=== PATIENT | female | born 1980 | race Caucasian/White ===

== ENCOUNTER 2023-06-10 11:22 | Day surgery (SDC) | payer BC ==
[2023-06-09 10:37] VITALS: BMI 41.3
[2023-06-10] MEDS ORDERED: PROPOFOL 20 ML ONE ×5 (14:29→14:33)
[2023-06-10] MEDS ORDERED: Midazolam HCl 2 mg/2 ml Vial ONE (14:34)
== END 2023-06-10 15:55 | disposition home or self-care (01) ==
LOC: CSHSDC 11:22
PROVIDERS: ATTEND Surgery
PROC: 0DBM8ZZ Excision of Descending Colon, Via Natural or Artificial Opening Endoscopic (ICD-10-PCS; principal; 2023-06-10)
DX: Z12.11 Encounter for screening for malignant neoplasm of colon (principal); K52.9 Noninfective gastroenteritis and colitis, unspecified; K63.5 Polyp of colon; D64.9 Anemia, unspecified; F33.9 Major depressive disorder, recurrent, unspecified; G40.909 Epilepsy, unspecified, not intractable, without status epilepticus; R00.2 Palpitations; F43.10 Post-traumatic stress disorder, unspecified; G43.909 Migraine, unspecified, not intractable, without status migrainosus; E66.01 Morbid (severe) obesity due to excess calories; E55.9 Vitamin D deficiency, unspecified; Z15.09 Genetic susceptibility to other malignant neoplasm; Z91.048 Other nonmedicinal substance allergy status; Z14.8 Genetic carrier of other disease; Z88.5 Allergy status to narcotic agent; Z88.6 Allergy status to analgesic agent; Z90.49 Acquired absence of other specified parts of digestive tract; Z68.41 Body mass index [BMI] 40.0-44.9, adult
CPT/HCPCS: 88305; J2250; J2704